=== PATIENT | male | born 2000 | race Caucasian/White ===

== ENCOUNTER 2023-11-18 12:56 | Emergency (ER) | payer OTHER, SELFPAY ==
--- NOTE | ~2023-11-18 | XR_ITS ---
EXAMINATION: XR lumbar spine 2-3V DATE: 11/18/2023 13:54 INDICATION: Low back pain after lifting boxes yesterday. TECHNIQUE: 3 views of lumbar spine were obtained. COMPARISON: None. FINDINGS: Bone alignment is normal. Vertebral body heights are normal. There is mildly decreased disc height at L1-L2. There is mild bilateral facet joint osteoarthritis at L1-L2. IMPRESSION: 1. Mild lumbar spondylosis. Reviewed, dictated and finalized at location A. MOLDER IMPRESSION: 1. Mild lumbar spondylosis.
[2023-11-18 12:58] VITALS: BP 148/53; PULSE 106; RESP 17; TEMP 36.4; O2SAT 100
[2023-11-18] MEDS: KETOROLAC (*BKC) 60 MG/2 ML VIAL IM (13:35)
--- NOTE | 2023-11-18 13:44 | PC.NURSE ---
Pt taken to Xray at this time
--- NOTE | 2023-11-18 13:54 | PC.NURSE ---
Pt returned to room 16 at this time
--- NOTE | 2023-11-18 14:17 | ED.BACK ---
HPI - Back Pain/Injury General Chief Complaint: Back Pain/Injury Stated Complaint: back pain Time Seen by Provider: 11/18/23 13:05 History of Present Illness HPI Narrative: Patient is a 21-year-old male who presents ER with reports of low back pain. 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 Had some soreness later in the day. He woke up today and his low back hurt worse. Friend of his attempted to pop his back by pushing on his back and lifting him up. He did feel a pop. It did not immediately increases pain but his pain increased after this as well. No numbness or tingling to legs or groin. No difficulty with urination / defecation. No fevers or chills or sweats. Related Data Allergies Allergy/AdvReac Type Severity Reaction Status Date / Time No Known Allergies Allergy Unverified 12/31/18 13:11 Review of Systems Constitutional: Constitutional: Reports no additional constitutional complaints Musculoskeletal: Musculoskeletal: Reports back pain, Denies arthralgias, Denies joint swelling and Denies muscle cramps Integumentary/Breasts: Skin/Breast: Reports system reviewed and no additional complaints, except as docu Neurologic: Reports system reviewed and no additional complaints, except as documented PMFSH Past Medical History Medical History (Updated 11/18/23 @ 14:25 by Lennox Lopez MD) Healthy adult male Surgical History Surgical History (Updated 11/18/23 @ 14:22 by Lennox Lopez MD) No history of previous surgery Exam Narrative: GENERAL: Well-appearing, well-nourished, and in no acute distress. HEAD: Normocephalic, atraumatic. ENT: Mucous membranes moist. Back: no reproducible midline tenderness the T/L-spine. Heating pack over the low back. In a mild discomfort over paraspinal muscles bilaterally at L3/4. EXTREMITIES: Normal range of motion. No edema. SKIN: Warm, dry, no rash. NEURO: Alert and oriented x3. PSYCH: Normal mood and affect. Course Course Emergency Course: Discussed imaging results. Toradol for pain here. Discussed outpatient management with anti-inflammatories muscle relaxers. No concerns for spinal epidural abscess or cauda quinine this time. Vital Signs Vital signs: Vital Signs Temperature 97.6 F 11/18/23 12:58 Pulse Rate 106 H 11/18/23 12:58 Respiratory Rate 17 11/18/23 12:58 Blood Pressure 148/53 H 11/18/23 12:58 Pulse Oximetry 100 11/18/23 12:58 Oxygen Delivery Room Air 11/18/23 12:58 Temperature 97.6 F 11/18/23 12:58 Pulse Rate 106 H 11/18/23 12:58 Respiratory Rate 17 11/18/23 12:58 Blood Pressure 148/53 H 11/18/23 12:58 Pulse Oximetry 100 11/18/23 12:58 Oxygen Delivery Room Air 11/18/23 12:58 MDM - Back Pain/Injury Imaging Data Radiologist's impression: ITS Impressions Lumbar Spine X-Ray 11/18/23 14:08 IMPRESSION: 1. Mild lumbar spondylosis. Discharge Plan Discharge Clinical Impression: Strain of lumbar region Patient Disposition: Home, Self-Care Condition: Stable Instructions: Acute Low Back Pain (ED) Additional Instructions: Please return to the emergency department if you develop severe pain that is not controlled by pain medications or if you are unable to walk because of pain or weakness. Return to the emergency department immediately if you develop fevers, loss of bowel or bladder control (dribbling of urine or having accidents you wouldn't normally have), inability to urinate, numbness of your genital or anal area, or weakness/numbness of your legs or arms as these could all be signs of a serious medical emergency. Prescriptions: New cyclobenzaprine 10 mg tablet 10 mg PO TID PRN (Reason: muscle spasm) Qty: 20 0RF promethazine 25 mg tablet 25 mg PO Q6H PRN (Reason: nausea and vomiting) Qty: 20 0RF Follow-up/Referrals: Francisco Matos MD [Physician] -
== END 2023-11-18 14:43 | disposition home or self-care (01) ==
PROVIDERS: Emergency Provider Emergency Medicine
DX: S39.012A Strain of muscle, fascia and tendon of lower back, initial encounter (principal); M47.816 Spondylosis without myelopathy or radiculopathy, lumbar region; X50.0XXA Overexertion from strenuous movement or load, initial encounter
CPT/HCPCS: 72100; 96372; 99283; J1885